=== PATIENT | male | born 1940 | race Caucasian/White ===

== ENCOUNTER → 2016-08-28 | Day surgery (SDC) | payer MEDICARE, BC ==
[~2016-08-28] MED LIST: Lactated Ringers 1,000 ML IV SCH; Lactated Ringers 1,000 ML ONE; Propofol 200 MG/20 ML SDV IV ONE
[2016-08-28 12:30] VITALS: BP 145/63
--- NOTE | 2016-08-29 08:38 | OR ---
DATE OF OPERATION: 08/28/2016 PREOPERATIVE DIAGNOSIS: GASTROINTESTINAL BLEEDING. POSTOPERATIVE DIAGNOSIS: NORMAL UPPER GASTROINTESTINAL ENDOSCOPY. SURGEON: Adalberto Valerio MD PROCEDURE: EGD. 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 DESCRIPTION OF PROCEDURE: After the patient's oropharyngeal mucosa was anesthetized with help of Xylocaine jelly, the patient was made to swallow the gastroscope down. The patient's esophagus was normal. EG junction is close to 40-cm level. Body of the stomach, antrum, pyloric channel, 1st and 2nd part of duodenum were examined; they were free of any ulcer disease, any tumor mass, any polypoid lesion, or any inflammatory process. Gastroscope was retroverted and fundus was examined, it was also normal. Multiple photographs were taken, a biopsy for CLOtest was also taken, and gastroscope was gradually withdrawn. The patient tolerated the procedure well and left the operating room in satisfactory condition. SHAD/DELILAH /[id number]
== END ==
LOC: CC.SDS 10:09
PROVIDERS: ATTEND Surgery
DX: K92.2 Gastrointestinal hemorrhage, unspecified (principal); I25.10 Atherosclerotic heart disease of native coronary artery without angina pectoris; I10 Essential (primary) hypertension; Z88.1 Allergy status to other antibiotic agents; Z88.2 Allergy status to sulfonamides; Z79.899 Other long term (current) drug therapy; E87.70 Fluid overload, unspecified; R06.02 Shortness of breath
CPT/HCPCS: 43235; 87081; J2704; J7120; 00740

== ENCOUNTER 2019-09-02 14:13 | Inpatient (IN) | payer MEDICARE, BC ==
[2019-09-02 15:04] LABS: CHLORIDE,CL 95 mEq/L (98-106); SODIUM,NA 130 mEq/L (136-145)
--- NOTE | 2019-09-02 16:23 | EDM.PDOC ---
ED HPI GENERAL MEDICAL PROBLEM - General Chief Complaint: Respiratory Problem Stated Complaint: respiratory symptoms, weakness Time Seen by Provider: 09/02/19 14:33 Source of Information: Reports: Patient, Family () History Limitations: Reports: No Limitations - History of Present Illness INITIAL COMMENTS - FREE TEXT/NARRATIVE: Arlene is a 78 yo male who presents to the ED via [facility] with complaints of weakness. States he hasn't felt well since last Sunday and feels that he hasn't had any strength. is present and admits to Arlene being extremely weak and not able to get around well. Arlene is usually wheelchair bound due to right above knee amputation but reports increased difficulty even with this. States he feels short of breath. Has history of shortness of breath. Quit smoking 11 yrs ago. Admits to decreased appetite and loose stools. Denies having any chest pain. states he has had a productive cough with thick yadav/yellowish phlegm. - Related Data Allergies Allergy/AdvReac Type Severity Reaction Status Date / Time sulfamethoxazole Allergy Cannot Verified 09/02/19 14:26 [From Bactrim] Remember trimethoprim [From Bactrim] Allergy Cannot Verified 09/02/19 14:26 Remember Home Meds: Home Meds Cholecalciferol (Vitamin D3) [Vitamin D-3] 2,000 unit PO DAILY 05/19/15 [History ] Clopidogrel Bisulfate [Clopidogrel] 1 tab PO DAILY 05/19/15 [History] Lisinopril 20 mg PO DAILY 05/19/15 [History] Magnesium 250 mg PO DAILY 05/19/15 [History] Simvastatin 20 mg PO DAILY 05/19/15 [History] Citalopram [Citalopram HBr] 20 mg PO DAILY 09/02/19 [History] Pantoprazole [ProTONIX] 40 mg PO DAILY 09/02/19 [History] amLODIPine [Norvasc] 5 mg PO DAILY 09/02/19 [History] Past Medical History Cardiovascular History: Reports: Blood Clots/VTE/DVT, High Cholesterol, Hypertension, PVD, SOB on Exertion Respiratory History: Reports: SOB Gastrointestinal History: Reports: GERD Musculoskeletal History: Reports: Amputation Psychiatric History: Reports: Anxiety, Depression Other Psychiatric History: alcohol use Endocrine/Metabolic History: Reports: Vitamin D Deficiency - Past Surgical History Cardiovascular Surgical History: Reports: None GI Surgical History: Reports: Other (See Below) Other GI Surgeries/Procedures: splenectomy Musculoskeletal Surgical History: Reports: Amputation, Other (See Below) Other Musculoskeletal Surgeries/Procedures:: RIGHT ABOVE KNEE AMPUTATION SECONDARY TO PVD. USES WHEELCHAIR FOR MOBILITY Social & Family History - Tobacco Use Smoking Status *Q: Former Smoker Used Tobacco, but Quit: Yes Month/Year Tobacco Last Used: 2008 - Caffeine Use Caffeine Use: Reports: None - Alcohol Use Days Per Week of Alcohol Use: 7 Number of Drinks Per Day: 3 Total Drinks Per Week: 21 - Recreational Drug Use Recreational Drug Use: No ED ROS GENERAL - Review of Systems Review Of Systems: See Below Constitutional: Reports: Weakness, Fatigue, Decreased Appetite. Denies: Fever, Chills HEENT: Reports: No Symptoms Respiratory: Reports: Shortness of Breath, Wheezing, Cough, Sputum. Denies: Hemoptysis Cardiovascular: Reports: Edema, Orthopnea. Denies: Chest Pain, Lightheadedness Endocrine: Reports: No Symptoms GI/Abdominal: Reports: Diarrhea. Denies: Abdominal Pain, Black Stool, Bloody Stool, Constipation, Nausea, Vomiting : Reports: No Symptoms Musculoskeletal: Reports: No Symptoms Skin: Reports: No Symptoms Neurological: Reports: No Symptoms Psychiatric: Reports: No Symptoms ED EXAM, GENERAL - Physical Exam Exam: See Below Exam Limited By: No Limitations General Appearance: Alert, No Apparent Distress Ears: Normal External Exam, Normal Canal, Hearing Grossly Normal, Normal TMs Nose: Normal Inspection, Normal Mucosa, No Blood Throat/Mouth: Normal Inspection, Normal Gums, Normal Oropharynx, Normal Voice, No Airway Compromise, Other (poor dentition) Head: Atraumatic, Normocephalic Neck: Normal Inspection, Supple, Non-Tender Respiratory/Chest: No Respiratory Distress, No Accessory Muscle Use, Chest Non- Tender, Decreased Breath Sounds (right lower lobe), Crackles, Wheezing, Prolonged Expiration Cardiovascular: Regular Rate, Rhythm, No Murmur GI/Abdominal: Normal Bowel Sounds, Soft, No Distention Back Exam: Normal Inspection Extremities: Normal Inspection, No Pedal Edema, Other (above the knee amputation to right lower extremity) Neurological: Alert, Oriented, Normal Cognition Psychiatric: Normal Affect, Normal Mood Skin Exam: Warm, Dry, Intact, Normal Color, No Rash Course - Vital Signs Last Recorded V/S: Last Vital Signs Temp 98.5 F 09/02/19 14:55 Pulse 62 09/02/19 14:55 Resp 18 09/02/19 14:55 BP 142/58 H 09/02/19 14:55 Pulse Ox 94 L 09/02/19 14:55 - Orders/Labs/Meds Orders: Active Orders 24 hr Category Date Time Status Chest 2V [CR] Stat Exams 09/02/19 14:31 Taken Isolation [COMM] Routine Oth 09/02/19 14:32 Active Medication Orders Clopidogrel Bisulfate (Plavix) 75 mg PO DAILY [facility] Lisinopril (Prinivil) 20 mg PO DAILY [facility] Non-Formulary Medication (Amlodipine [Norvasc]) 5 mg PO DAILY [facility] M Non-Formulary Medication (Citalopram [Citalopram Hbr]) 20 mg PO DAILY [facility] M Non-Formulary Medication (Magnesium [Magnesium]) 250 mg PO DAILY [facility] Pantoprazole Sodium (Protonix) 40 mg PO ACBREAKFAST [facility] M Simvastatin (Zocor) 20 mg PO DAILY [facility] Labs: Laboratory Tests 09/02/19 09/02/19 09/02/19 Range/Units 14:31 14:31 14:31 WBC 6.9 (5.0-10.0) 10^3/uL RBC 3.91 L (4.50-6.00) 10^6/uL Hgb 12.4 L (14.0-18.0) g/dL Hct 34.6 L (40.0-54.0) % MCV 88.5 (82.0-94.0) fL MCH 31.7 (27.0-32.0) pg MCHC 35.8 (33.0-38.0) g/dL RDW Coeff of [place] 14.3 (11.0-15.0) % Plt Count 223 (150-400) 10^3/uL Neut % (Auto) 66.3 (35-85) % Lymph % (Auto) 11.3 (10-55) % [place] % (Auto) 21.7 H (0-16) % Eos % (Auto) 0.3 (0-5) % Baso % (Auto) 0.4 (0-3) % Neut # (Auto) 4.57 (1.80-7.00) 10^3/uL Lymph # (Auto) 0.78 L (1.00-4.80) 10^3/uL [place] # (Auto) 1.50 H (0.00-0.80) 10^3/uL Eos # (Auto) 0.02 (0.00-0.45) 10^3/uL Baso # (Auto) 0.03 10^3/uL Sodium 130 L (136-145) mEq/L Potassium 3.7 (3.5-5.0) mEq/L Chloride 95 L (98-106) mEq/L Carbon Dioxide 22 (21-32) mmol/L BUN 8 D (7-18) mg/dL Creatinine 1.0 (0.7-1.3) mg/dL Est Cr Clr Drug Dosing 52.75 mL/min Estimated GFR (MDRD) > 60 (>=60) mL/min Glucose 94 (75-99) mg/dL Lactic Acid 1.0 (0.4-2.0) mmol/L Calcium 8.8 (8.4-10.1) mg/dL Total Bilirubin 1.0 (0.0-1.0) mg/dL AST 25 (15-37) U/L ALT 17 (12-78) U/L Alkaline Phosphatase 158 H (46-116) U/L C-Reactive Protein 4.5 H (0.2-0.8) mg/dL NT-Pro-B Natriuret Pep 6546 H (0-1000) pg/mL Total Protein 6.8 (6.4-8.2) g/dL Albumin 3.0 L (3.4-5.0) g/dL Meds: Medications Generic Name Dose Route Start Last Admin Trade Name Freq PRN Reason Stop Dose Admin Clopidogrel Bisulfate 75 mg 09/03/19 08:00 Plavix PO DAILY [facility] Lisinopril 20 mg 09/03/19 08:00 Prinivil PO DAILY [facility] Non-Formulary Medication 5 mg 09/03/19 08:00 Amlodipine [Norvasc] PO DAILY [facility] Non-Formulary Medication 20 mg 09/03/19 08:00 Citalopram [Citalopram Hbr] PO DAILY [facility] Non-Formulary Medication 250 mg 09/03/19 08:00 Magnesium [Magnesium] PO DAILY [facility] Pantoprazole Sodium 40 mg 09/03/19 07:00 Protonix PO ACBREAKFAST [facility] Simvastatin 20 mg 09/03/19 08:00 Zocor PO DAILY [facility] Departure - Departure Time of Disposition: 15:45 Disposition: Admitted As Inpatient 67 Clinical Impression: Right lower lobe lung mass, Pleural effusion Congestive heart failure Qualifiers: Heart failure type: unspecified Heart failure chronicity: acute Qualified Code( s): I50.9 - Heart failure, unspecified - Discharge Information Sepsis Event Note - Evaluation Sepsis Screening Result: No Definite Risk - Focused Exam Vital Signs: Vital Signs Temp Pulse Resp BP Pulse Ox 09/02/19 14:55 98.5 F 62 18 142/58 H 94 L 09/02/19 14:19 98.7 F 68 18 133/53 L 96 Date Exam was Performed: 09/02/19 Time Exam was Performed: 16:18 - Problem List & Annotations (1) Congestive heart failure SNOMED Code(s): 61988117 Code(s): I50.9 - HEART FAILURE, UNSPECIFIED Status: Acute Current Visit: Yes Qualifiers: Heart failure type: unspecified Heart failure chronicity: acute Qualified Code(s): I50.9 - Heart failure, unspecified (2) Pleural effusion SNOMED Code(s): 98513272 Code(s): J90 - PLEURAL EFFUSION, NOT ELSEWHERE CLASSIFIED Status: Acute Current Visit: Yes (3) Right lower lobe lung mass SNOMED Code(s): 803107184 Code(s): R91.8 - OTHER NONSPECIFIC ABNORMAL FINDING OF LUNG FIELD Status: Acute Current Visit: Yes - My Orders Last 24 Hours: My Active Orders 09/02/19 14:31 Chest 2V [CR] Stat 09/02/19 14:32 Isolation [COMM] Routine - Assessment/Plan Last 24 Hours: My Active Orders 09/02/19 14:31 Chest 2V [CR] Stat 09/02/19 14:32 Isolation [COMM] Routine Plan: Chest x-ray did show large right low/mid lung effusion with concerns of possible lung mass. Pro BNP was elevated above 6000. Will admit to Dr. Kathleen's services under acute care for CHF exacerbation and further work up in regards to lung mass/consolidation. CT Chest ordered. Echocardiogram in the am. Will start IV Lasix 40mg daily. Consulted with Prudence Howell and she is aware of patient admission.
[2019-09-02] MEDS ORDERED: Sodium Chloride 0.9% 10 ML Syringe FLUSH PRN (16:27)
[2019-09-02] MEDS ORDERED: Acetaminophen 325 MG Tab PO PRN (16:27)
[2019-09-02] MEDS ORDERED: Docusate Sodium 100 MG Cap PO PRN (16:27)
[2019-09-02] MEDS ORDERED: Iopamidol 755 Mg/ML 100 ML Bottle IVPUSH ONE (16:32)
[2019-09-02] MEDS: Furosemide 40 MG/4 ML VIAL IVPUSH SCH (17:35)
[2019-09-02] MEDS: Simvastatin 20 MG Tab PO SCH (19:42)
[2019-09-02] MEDS: Enoxaparin 40 MG/0.4 ML Syringe SUBCUT SCH (19:43)
[2019-09-02] MEDS: Citalopram 10 MG Tab PO SCH (19:43)
[2019-09-03] MEDS: Pantoprazole 40 MG Tab.CR PO SCH (06:53)
[2019-09-03 07:46] LABS: CHLORIDE,CL 94 mEq/L (98-106); SODIUM,NA 131 mEq/L (136-145)
[2019-09-03] MEDS: amLODIPine 10 MG Tab PO SCH (07:50)
[2019-09-03] MEDS: Lisinopril 20 MG Tab PO SCH (07:51)
[2019-09-03] MEDS: Clopidogrel 75 MG Tab PO SCH (07:51)
--- NOTE | 2019-09-03 08:56 | PCM.PN ---
- General Info Date of Service: 09/03/19 Admission Dx/Problem (Free Text): Acute on chronic systolic CHF Right lung mass/effusion Functional Status: Reports: Pain Controlled. Denies: Tolerating Diet, Ambulating - Review of Systems General: Reports: Weakness, Fatigue, Malaise HEENT: Reports: No Symptoms Pulmonary: Reports: Shortness of Breath, Wheezing Cardiovascular: Denies: Chest Pain, Edema, Lightheadedness Gastrointestinal: Denies: Abdominal Pain, Nausea, Vomiting Genitourinary: Reports: No Symptoms Musculoskeletal: Reports: No Symptoms Skin: Reports: No Symptoms Neurological: Reports: Weakness - Patient Data Vitals - Most Recent: Last Vital Signs Temp 99.5 F 09/03/19 04:00 Pulse 74 09/03/19 04:00 Resp 20 09/03/19 04:00 BP 125/49 L 09/03/19 07:51 Pulse Ox 91 L 09/03/19 04:00 Weight - Most Recent: 124 lb 3.2 oz I&O - Last 24 Hours: Intake & Output 09/02/19 09/03/19 09/03/19 22:59 06:59 14:59 Intake Total 40 550 Output Total 1575 1025 Balance -1535 -475 Lab Results Last 24 Hours: Laboratory Results - last 24 hr 09/02/19 09/02/19 09/02/19 Range/Units 14:31 14:31 14:31 WBC 6.9 (5.0-10.0) 10^3/uL RBC 3.91 L (4.50-6.00) 10^6/uL Hgb 12.4 L (14.0-18.0) g/dL Hct 34.6 L (40.0-54.0) % MCV 88.5 (82.0-94.0) fL MCH 31.7 (27.0-32.0) pg MCHC 35.8 (33.0-38.0) g/dL RDW Coeff of [place] 14.3 (11.0-15.0) % Plt Count 223 (150-400) 10^3/uL Neut % (Auto) 66.3 (35-85) % Lymph % (Auto) 11.3 (10-55) % [place] % (Auto) 21.7 H (0-16) % Eos % (Auto) 0.3 (0-5) % Baso % (Auto) 0.4 (0-3) % Neut # (Auto) 4.57 (1.80-7.00) 10^3/uL Lymph # (Auto) 0.78 L (1.00-4.80) 10^3/uL [place] # (Auto) 1.50 H (0.00-0.80) 10^3/uL Eos # (Auto) 0.02 (0.00-0.45) 10^3/uL Baso # (Auto) 0.03 10^3/uL Sodium 130 L (136-145) mEq/L Potassium 3.7 (3.5-5.0) mEq/L Chloride 95 L (98-106) mEq/L Carbon Dioxide 22 (21-32) mmol/L BUN 8 D (7-18) mg/dL Creatinine 1.0 (0.7-1.3) mg/dL Est Cr Clr Drug Dosing 52.75 mL/min Estimated GFR (MDRD) > 60 (>=60) mL/min Glucose 94 (75-99) mg/dL Lactic Acid 1.0 (0.4-2.0) mmol/L Calcium 8.8 (8.4-10.1) mg/dL Total Bilirubin 1.0 (0.0-1.0) mg/dL AST 25 (15-37) U/L ALT 17 (12-78) U/L Alkaline Phosphatase 158 H (46-116) U/L C-Reactive Protein 4.5 H (0.2-0.8) mg/dL NT-Pro-B Natriuret Pep 6546 H (0-1000) pg/mL Total Protein 6.8 (6.4-8.2) g/dL Albumin 3.0 L (3.4-5.0) g/dL 09/03/19 09/03/19 Range/Units 07:00 07:00 WBC 7.2 (5.0-10.0) 10^3/uL RBC 3.80 L (4.50-6.00) 10^6/uL Hgb 12.1 L (14.0-18.0) g/dL Hct 34.2 L (40.0-54.0) % MCV 90.0 (82.0-94.0) fL MCH 31.8 (27.0-32.0) pg MCHC 35.4 (33.0-38.0) g/dL RDW Coeff of [place] 14.7 (11.0-15.0) % Plt Count 229 (150-400) 10^3/uL Neut % (Auto) 71.1 (35-85) % Lymph % (Auto) 10.3 (10-55) % [place] % (Auto) 17.8 H (0-16) % Eos % (Auto) 0.1 (0-5) % Baso % (Auto) 0.7 (0-3) % Neut # (Auto) 5.10 (1.80-7.00) 10^3/uL Lymph # (Auto) 0.74 L (1.00-4.80) 10^3/uL [place] # (Auto) 1.28 H (0.00-0.80) 10^3/uL Eos # (Auto) 0.01 (0.00-0.45) 10^3/uL Baso # (Auto) 0.05 10^3/uL Sodium 131 L (136-145) mEq/L Potassium 3.2 L (3.5-5.0) mEq/L Chloride 94 L (98-106) mEq/L Carbon Dioxide 21 (21-32) mmol/L BUN 8 (7-18) mg/dL Creatinine 1.0 (0.7-1.3) mg/dL Est Cr Clr Drug Dosing 49.29 mL/min Estimated GFR (MDRD) > 60 (>=60) mL/min Glucose 71 L (75-99) mg/dL Lactic Acid (0.4-2.0) mmol/L Calcium 8.9 (8.4-10.1) mg/dL Total Bilirubin (0.0-1.0) mg/dL AST (15-37) U/L ALT (12-78) U/L Alkaline Phosphatase (46-116) U/L C-Reactive Protein (0.2-0.8) mg/dL NT-Pro-B Natriuret Pep (0-1000) pg/mL Total Protein (6.4-8.2) g/dL Albumin (3.4-5.0) g/dL [place] Results Last 24 Hours: Microbiology 09/02/19 14:31 Influenza Type A Antigen Screen - Final Nasopharyngeal Swab NEGATIVE INFLUENZA A VIRUS AG REFERENCE RANGE: NEGATIVE Influenza Type B Antigen Screen - Final NEGATIVE INFLUENZA B VIRUS AG REFERENCE RANGE: NEGATIVE Med Orders - Current: Current Medications Acetaminophen (Tylenol) 650 mg PO Q4H PRN PRN Reason: Pain (Mild 1-3)/fever Albuterol/Ipratropium (Duoneb 3.0-0.5 Mg/3 Ml) 3 ml NEB Q4H PRN PRN Reason: Dyspnea Amlodipine Besylate (Norvasc) 5 mg PO DAILY [facility] Last Admin: 09/03/19 07:50 Dose: 5 mg Citalopram Hydrobromide (Celexa) 20 mg PO BEDTIME [facility] [place] Last Admin: 09/02/19 19:43 Dose: 20 mg Clopidogrel Bisulfate (Plavix) 75 mg PO DAILY [facility] [place] Last Admin: 09/03/19 07:51 Dose: 75 mg Docusate Sodium (Colace) 100 mg PO BID PRN PRN Reason: Constipation Enoxaparin Sodium (Lovenox) 40 mg SUBCUT Q24H [facility] [place] Last Admin: 09/02/19 19:43 Dose: 40 mg Furosemide (Lasix) 40 mg IVPUSH Q24H [facility] [place] Last Admin: 09/02/19 17:35 Dose: 40 mg Lisinopril (Prinivil) 20 mg PO DAILY [facility] [place] Last Admin: 09/03/19 07:51 Dose: 20 mg Magnesium Oxide (Magnesium Oxide) 250 mg PO DAILY [facility] [place] Last Admin: 09/03/19 07:51 Dose: 250 mg Pantoprazole Sodium (Protonix) 40 mg PO ACBREAKFAST [facility] [place] Last Admin: 09/03/19 06:53 Dose: 40 mg Potassium Chloride (Klor-Con 10) 20 meq PO DAILY [facility] [place] Simvastatin (Zocor) 20 mg PO BEDTIME [facility] [place] Last Admin: 09/02/19 19:42 Dose: 20 mg Sodium Chloride (Saline Flush) 10 ml FLUSH ASDIRECTED PRN PRN Reason: Keep Vein Open Discontinued Medications Iopamidol (Isovue-370 (76%)) 100 ml IVPUSH ONETIME ONE Stop: 09/02/19 16:33 Last Admin: 09/02/19 17:18 Dose: 100 ml - Exam General: Alert, Oriented HEENT: Mucous Membr. Moist/[place] Neck: Supple Lungs: Decreased Breath Sounds, Wheezing Cardiovascular: Regular Rate, Regular Rhythm GI/Abdominal Exam: Normal Bowel Sounds, Soft, Non-Tender Extremities: Normal Inspection (LLE), No Pedal Edema Skin: Warm, Dry Neurological: No New Focal Deficit Sepsis Event Note - Evaluation Sepsis Screening Result: No Definite Risk - Focused Exam Vital Signs: Vital Signs Temp Temp Pulse Resp BP BP Pulse Ox 09/03/19 07:51 125/49 L 09/03/19 07:50 125/49 L 09/03/19 04:00 99.5 F 74 20 133/55 L 91 L 09/02/19 23:27 99.8 F 84 22 H 141/63 H 94 L Date Exam was Performed: 09/03/19 Time Exam was Performed: 20:08 - Problem List & Annotations (1) Congestive heart failure SNOMED Code(s): 17607519 Code(s): I50.9 - HEART FAILURE, UNSPECIFIED Status: Acute Priority: High Current Visit: Yes Qualifiers: Heart failure type: systolic Heart failure chronicity: acute Qualified Code(s): I50.21 - Acute systolic (congestive) heart failure Annotation/Comment:: Acute on Chronic Systolic CHF, stage 2 (2) Pleural effusion SNOMED Code(s): 53536289 Code(s): J90 - PLEURAL EFFUSION, NOT ELSEWHERE CLASSIFIED Status: Acute Priority: High Current Visit: Yes (3) Right lower lobe lung mass SNOMED Code(s): 949672215 Code(s): R91.8 - OTHER NONSPECIFIC ABNORMAL FINDING OF LUNG FIELD Status: Acute Priority: High Current Visit: Yes - Problem List Review Problem List Initiated/Reviewed/Updated: Yes - My Orders Last 24 Hours: My Active Orders 09/03/19 08:38 Albuterol/Ipratropium [DuoNeb 3.0-0.5 MG/3 ML] 3 ml NEB Q4H PRN 09/03/19 08:39 RT Aerosol Therapy [RC] ASDIRECTED 09/03/19 08:41 MAGNESIUM [CHEM] Routine 09/03/19 09:00 Potassium Chloride [Klor-Con 10] 20 meq PO DAILY 09/04/19 05:11 BASIC METABOLIC PANEL,BMP [CHEM] Routine PRO B-TYPE NATRIUR PEPT,BNPPRO [CHEM] Routine - Assessment Assessment:: Acute on chronic systolic heart failure, stage 2 - Plan Plan:: Patient is feeling better today. Has noted much improved of edema in left leg. Less shortness of breath. Has no appetite, refuses breakfast this am, states never eats until later in the day. Does drink alcohol daily, feels he is doing "okay yet without it". Lung sounds are noted to have expiratory wheezing throughout. Abdomen is soft, nontender. WBC remains normal today at 7.2. Potassium low today at 3.2. CRP 4.5. Blood pressure stable. Oxygen sat 91% this am on room air. Did diurese out 2600 ml since IV Lasix yesterday. Will add potassium orally. Continue IV Lasix. Duonebs as needed. Repeat labs in am, chest xray in am. Possible discharge home if stable.
[2019-09-03] MEDS: Potassium Chloride 10 MEQ Tab.ER PO SCH (09:06)
[2019-09-03] MEDS: Albuterol/Ipratropium 3.0-0.5 MG/3 ML Neb Soln NEB PRN ×2 (09:07→23:16)
[2019-09-03] MEDS: Furosemide 40 MG/4 ML VIAL IVPUSH SCH (17:27)
[2019-09-03] MEDS: Simvastatin 20 MG Tab PO SCH (19:35)
[2019-09-03] MEDS: Citalopram 10 MG Tab PO SCH (19:36)
[2019-09-03] MEDS: Enoxaparin 40 MG/0.4 ML Syringe SUBCUT SCH (19:36)
[2019-09-04 04:23] VITALS: PULSE 67
[2019-09-04 07:16] LABS: CHLORIDE,CL 95 mEq/L (98-106); SODIUM,NA 131 mEq/L (136-145)
[2019-09-04] MEDS: Pantoprazole 40 MG Tab.CR PO SCH (07:23)
[2019-09-04 08:04] VITALS: BP 121/50
[2019-09-04] MEDS: Potassium Chloride 10 MEQ Tab.ER PO SCH (08:04)
[2019-09-04] MEDS: Clopidogrel 75 MG Tab PO SCH (08:05)
[2019-09-04] MEDS: Lisinopril 20 MG Tab PO SCH (08:05)
[2019-09-04] MEDS: amLODIPine 10 MG Tab PO SCH (08:05)
--- NOTE | 2019-09-04 09:10 | PCM.DCSUM1 ---
Discharge Summary - Hospital Course Free Text/Narrative:: Arlene is a 78 year old male presents to ER with increased weakness, anorexia and shortness of breath. He had not felt well over the week prior, getting more weak. Typically wheelchair bound but having trouble getting around even with that. Not eating well. Has noted increased edema in his left leg. Labs do show a ProBNP of greater than 6000. Chest xray shows large pleural effusion, questionable mass in right lung base. CT scan ordered. Started on IV Lasix. Echocardiogram ordered. Diagnosis: Stroke: No Modified [place] Scale: No Symptoms at All Modified [place] Scale Score: 0 - Discharge Data Discharge Date: 09/04/19 Discharge Disposition: Home, Self-Care 01 Condition: Fair - Referral to Home Health Primary Care Physician: Stevie Tran PA-C - Discharge Diagnosis/Problem(s) (1) Congestive heart failure SNOMED Code(s): 33367252 ICD Code: I50.9 - HEART FAILURE, UNSPECIFIED Status: Acute Priority: High Problem Details: Acute on Chronic Systolic CHF, stage 2 Qualifiers: Heart failure type: systolic Heart failure chronicity: acute Qualified Code(s): I50.21 - Acute systolic (congestive) heart failure (2) Pleural effusion SNOMED Code(s): 45792316 ICD Code: J90 - PLEURAL EFFUSION, NOT ELSEWHERE CLASSIFIED Status: Acute Priority: High (3) Right lower lobe lung mass SNOMED Code(s): 934191496 ICD Code: R91.8 - OTHER NONSPECIFIC ABNORMAL FINDING OF LUNG FIELD Status: Acute Priority: High - Patient Summary/Data Complications: none Hospital Course: Patient is feeling better. Feels less short of breath. Is down 6# since admission with IV Lasix. No further edema in left leg. Does still have wheezing scattered throughout, crackles in right base. Labs are noted, ProBNP is actually up at this time over 7500 but as mentioned, down in weight. Potassium did drop on day 1 to 3.2 after IV Lasix. Started yesterday on potassium and potassium up to 3.4 today. Appetite is fair but patient states "never eat much until suppertime". Patient requesting to be discharged. Is aware of importance of being compliant with Lasix at home as had admitted stopped taking his Lasix as "have to void all the time and cannot fit his wheelchair through the door at the bar". Chest xray done today, shows mild improvement of effusion in right lung. CT scan had been done with notable fluid but no mass. Discharge home on Lasix and Potassium. - Patient Instructions Diet: Usual Diet as Tolerated Activity: As Tolerated - Discharge Plan *PRESCRIPTION DRUG MONITORING PROGRAM REVIEWED*: No *COPY OF PRESCRIPTION DRUG MONITORING REPORT IN PATIENT JACQUELINE: No Prescriptions/Med Rec: Furosemide [Lasix] 40 mg PO DAILY #30 tablet Potassium Chloride [Klor-Con 10] 20 meq PO DAILY #30 tab.er Home Medications: Home Meds Cholecalciferol (Vitamin D3) [Vitamin D3] 2,000 unit PO DAILY 05/19/15 [History] Clopidogrel Bisulfate [Clopidogrel] 1 tab PO DAILY 05/19/15 [History] Lisinopril 20 mg PO DAILY 05/19/15 [History] Magnesium 250 mg PO DAILY 05/19/15 [History] Simvastatin 20 mg PO DAILY 05/19/15 [History] Citalopram [Citalopram HBr] 20 mg PO DAILY 09/02/19 [History] Pantoprazole [ProTONIX] 40 mg PO DAILY 09/02/19 [History] amLODIPine [Norvasc] 5 mg PO DAILY 09/02/19 [History] Furosemide [Lasix] 40 mg PO DAILY #30 tablet 09/04/19 [Rx] Potassium Chloride [Klor-Con 10] 20 meq PO DAILY #30 tab.er 09/04/19 [Rx] Forms: ED Department Discharge Referrals: Stevie Tran PA-C [Primary Care Provider] - (Follow up with Romulo Tran in 10 days ) - Discharge Summary/Plan Comment DC Time >30 min.: No - General Info Date of Service: 09/04/19 Admission Dx/Problem (Free Text: Acute on chronic systolic CHF Right lung mass/effusion Functional Status: Reports: Pain Controlled, Tolerating Diet, Ambulating - Review of Systems General: Reports: Weakness, Fatigue, Malaise. Denies: Fever HEENT: Reports: No Symptoms Pulmonary: Reports: Shortness of Breath, Cough, Wheezing Cardiovascular: Denies: Chest Pain, Edema, Lightheadedness Gastrointestinal: Denies: Abdominal Pain, Nausea, Vomiting Genitourinary: Reports: No Symptoms Musculoskeletal: Reports: No Symptoms Skin: Reports: No Symptoms Neurological: Reports: Weakness - Patient Data Vitals - Most Recent: Last Vital Signs Temp 100.6 F 09/04/19 08:00 Pulse 67 09/04/19 08:00 Resp 18 09/04/19 08:00 BP 121/50 L 09/04/19 08:05 Pulse Ox 91 L 09/04/19 08:00 Weight - Most Recent: 120 lb 8 oz I&O - Last 24 hours: Intake & Output 09/03/19 09/04/19 09/04/19 22:59 06:59 14:59 Intake Total 200 150 Output Total 400 400 Balance -200 -250 Lab Results - Last 24 hrs: Laboratory Results - last 24 hr 09/04/19 Range/Units 06:48 Sodium 131 L (136-145) mEq/L Potassium 3.4 L (3.5-5.0) mEq/L Chloride 95 L (98-106) mEq/L Carbon Dioxide 25 (21-32) mmol/L BUN 9 (7-18) mg/dL Creatinine 1.1 (0.7-1.3) mg/dL Est Cr Clr Drug Dosing 43.48 mL/min Estimated GFR (MDRD) > 60 (>=60) mL/min Glucose 78 (75-99) mg/dL Calcium 8.4 (8.4-10.1) mg/dL NT-Pro-B Natriuret Pep 7564 H (0-1000) pg/mL Med Orders - Current: Current Medications Acetaminophen (Tylenol) 650 mg PO Q4H PRN PRN Reason: Pain (Mild 1-3)/fever Albuterol/Ipratropium (Duoneb 3.0-0.5 Mg/3 Ml) 3 ml NEB Q4H PRN PRN Reason: Dyspnea Last Admin: 09/03/19 23:16 Dose: 3 ml Amlodipine Besylate (Norvasc) 5 mg PO DAILY [facility] Last Admin: 09/04/19 08:05 Dose: 5 mg Citalopram Hydrobromide (Celexa) 20 mg PO BEDTIME [facility] Last Admin: 09/03/19 19:36 Dose: 20 mg Clopidogrel Bisulfate (Plavix) 75 mg PO DAILY [facility] Last Admin: 09/04/19 08:05 Dose: 75 mg Docusate Sodium (Colace) 100 mg PO BID PRN PRN Reason: Constipation Enoxaparin Sodium (Lovenox) 40 mg SUBCUT Q24H [facility] Last Admin: 09/03/19 19:36 Dose: 40 mg Furosemide (Lasix) 40 mg IVPUSH Q24H [facility] Last Admin: 09/03/19 17:27 Dose: 40 mg Lisinopril (Prinivil) 20 mg PO DAILY [facility] Last Admin: 09/04/19 08:05 Dose: 20 mg Magnesium Oxide (Magnesium Oxide) 250 mg PO DAILY [facility] Last Admin: 09/04/19 08:07 Dose: 250 mg Pantoprazole Sodium (Protonix) 40 mg PO ACBREAKFAST [facility] Last Admin: 09/04/19 07:23 Dose: 40 mg Potassium Chloride (Klor-Con 10) 20 meq PO DAILY [facility] Last Admin: 09/04/19 08:04 Dose: 20 meq Simvastatin (Zocor) 20 mg PO BEDTIME [facility] Last Admin: 09/03/19 19:35 Dose: 20 mg Sodium Chloride (Saline Flush) 10 ml FLUSH ASDIRECTED PRN PRN Reason: Keep Vein Open Discontinued Medications Iopamidol (Isovue-370 (76%)) 100 ml IVPUSH ONETIME ONE Stop: 09/02/19 16:33 Last Admin: 09/02/19 17:18 Dose: 100 ml - Exam General: Reports: Alert, Oriented HEENT: Reports: Mucous Membr. Moist/[place] Neck: Reports: Supple Lungs: Reports: Decreased Breath Sounds, Wheezing Cardiovascular: Reports: Regular Rate, Regular Rhythm GI/Abdominal Exam: Normal Bowel Sounds, Soft, Non-Tender Extremities: Normal Inspection, No Pedal Edema Skin: Reports: Warm, Dry Neurological: Reports: No New Focal Deficit
== END 2019-09-04 10:33 | disposition home or self-care (01) | DRG 293 ==
LOC: CC.ED 14:13 → CC.MS 15:39 → UNDOADMIN 15:39 → CC.MS 15:46
PROVIDERS: ADMIT Physician Assistant Medical; ATTEND Family Medicine
DX: I11.0 Hypertensive heart disease with heart failure (principal); I50.9 Heart failure, unspecified; I50.23 Acute on chronic systolic (congestive) heart failure; R91.8 Other nonspecific abnormal finding of lung field; I73.9 Peripheral vascular disease, unspecified; Z86.718 Personal history of other venous thrombosis and embolism; E78.00 Pure hypercholesterolemia, unspecified; K21.9 Gastro-esophageal reflux disease without esophagitis; F41.9 Anxiety disorder, unspecified; E55.9 Vitamin D deficiency, unspecified; Z90.81 Acquired absence of spleen; Z89.611 Acquired absence of right leg above knee; F32.9 Major depressive disorder, single episode, unspecified; Z99.3 Dependence on wheelchair; Z87.891 Personal history of nicotine dependence; Z88.2 Allergy status to sulfonamides; Z79.02 Long term (current) use of antithrombotics/antiplatelets; Z88.1 Allergy status to other antibiotic agents; Z79.899 Other long term (current) drug therapy
CPT/HCPCS: 36415; 71046; 71260; 80048; 80053; 83605; 83735; 83880; 85025; 86140; 87804; 93306; 94640; 99285-25; A9270-GY; J1650; J1940; J7620-GY; Q9967

== ENCOUNTER 2021-10-10 13:41 | Inpatient (IN) | payer MEDICARE, BC ==
[2021-10-10 14:09] LABS: CHLORIDE,CL 102 mEq/L (98-106); SODIUM,NA 136 mEq/L (136-145)
[2021-10-10] MEDS: Sodium Chloride 0.9% 1,000 ML IV SCH (16:58)
[2021-10-11] MEDS ORDERED: Pantoprazole 40 MG Tab.CR PO SCH (07:00)
[2021-10-11] MEDS ORDERED: amLODIPine 10 MG Tab PO SCH (08:00)
[2021-10-11] MEDS ORDERED: Cholecalciferol (Vitamin D3) 25 MCG Tab PO SCH (08:00)
[2021-10-11] MEDS ORDERED: Lisinopril 10 MG Tab PO SCH (08:00)
[2021-10-11] MEDS ORDERED: Potassium Chloride 10 MEQ Tab.ER PO SCH (08:00)
[2021-10-11] MEDS ORDERED: Multivitamins with Iron/Calcium/Folic Acid/Minerals Tab PO SCH (08:00)
[2021-10-11] MEDS ORDERED: Sertraline 25 MG Tab PO SCH (08:00)
[2021-10-11] MEDS ORDERED: Furosemide 40 MG Tab PO SCH (08:00)
[2021-10-11] MEDS ORDERED: Pantoprazole 40 MG Vial IVPUSH SCH (10:00)
[2021-10-11] MEDS: MIDODRINE 5 MG PO SCH ×2 (10:51→13:32)
[2021-10-11 11:04] VITALS: BP 106/49; PULSE 67
[2021-10-11] MEDS: Sodium Chloride 0.9% 1,000 ML IV SCH (11:39)
[2021-10-11] MEDS ORDERED: Simvastatin 20 MG Tab PO SCH (20:00)
== END 2021-10-11 14:05 | DRG 811 ==
LOC: CC.FCMC 13:41 → CC.ACU 13:41 → CC.MS 15:05 → UNDOADMIN 15:05 → CC.MS 16:21
PROVIDERS: ADMIT Physician Assistant Medical; ATTEND Nurse Practitioner Family
DX: D64.9 Anemia, unspecified (principal); I50.21 Acute systolic (congestive) heart failure; K92.2 Gastrointestinal hemorrhage, unspecified; J90 Pleural effusion, not elsewhere classified; J98.11 Atelectasis; E78.5 Hyperlipidemia, unspecified; I73.9 Peripheral vascular disease, unspecified; I11.0 Hypertensive heart disease with heart failure; I95.9 Hypotension, unspecified; K21.9 Gastro-esophageal reflux disease without esophagitis; F41.9 Anxiety disorder, unspecified; F32.A Depression, unspecified; E78.00 Pure hypercholesterolemia, unspecified; E55.9 Vitamin D deficiency, unspecified; Z89.611 Acquired absence of right leg above knee; Z86.79 Personal history of other diseases of the circulatory system; Z88.2 Allergy status to sulfonamides; Z88.8 Allergy status to other drugs, medicaments and biological substances
CPT/HCPCS: 36415; 71045; 80053; 80061; 83735; 85025; 86850; 86900; 86901; 86920; 86922; 93005; 99223; 99238; A9270-GY; C9113; J7030

== ENCOUNTER 2021-10-24 00:40 | Emergency (ER) | payer MEDICARE, BC ==
[2021-10-24] MEDS ORDERED: Sodium Chloride 0.9% 10 ML Syringe FLUSH PRN (00:50)
[2021-10-24] MEDS ORDERED: Sodium Chloride 0.9% 1,000 ML IV ONE (00:51)
[2021-10-24] MEDS ORDERED: Ondansetron 4 MG/2 ML SDV IVPUSH STA (00:52)
[2021-10-24 01:12] LABS: PTT,PARTIAL THROMBOPLSTIN TIME 27.6 SEC (23.2-32.3)
[2021-10-24] MEDS ORDERED: Pantoprazole 40 MG in Sodium Chloride 0.9% 100 ML IV SCH (01:30)
[2021-10-24 03:07] VITALS: BP 130/66; PULSE 80
== END 2021-10-24 03:48 ==
LOC: CC.ED 00:40
DX: K92.2 Gastrointestinal hemorrhage, unspecified (principal); R53.1 Weakness; D59.12 Cold autoimmune hemolytic anemia; K92.0 Hematemesis; E78.00 Pure hypercholesterolemia, unspecified; I10 Essential (primary) hypertension; K21.9 Gastro-esophageal reflux disease without esophagitis; Z79.899 Other long term (current) drug therapy; Z88.2 Allergy status to sulfonamides; Z88.8 Allergy status to other drugs, medicaments and biological substances
CPT/HCPCS: 36415; 80053; 85025; 85610; 85730; 96365; 96375; 99284; 99285-25; C9113; J2405; J7030